=== PATIENT | female | born 1950 | race Caucasian/White ===

== ENCOUNTER 2016-06-13 18:26 | Inpatient (IN) | payer MEDICARE, OTHER ==
[~2016-06-13] VITALS: Ht 151.1 cm; Wt 59.0 kg
[2016-06-13] MEDS ORDERED: oxyCODONE/APAP 10/325 TABLET ONE (19:07)
[2016-06-13] MEDS ORDERED: DIGOXIN 0.5 MG/2 ML AMP IV STA (21:03)
[2016-06-13] MEDS ORDERED: DOCUSATE SOD 100 MG CAP PO PRN (21:05)
[2016-06-13] MEDS ORDERED: ONDANSETRON 4 MG VIAL IV PRN (21:05)
[2016-06-13] MEDS ORDERED: ACETAMINOPHEN 325 MG TAB PO PRN (21:05)
[2016-06-13] MEDS ORDERED: NEB-XOPENEX 0.63 MG/3 ML INH PRN (21:05)
[2016-06-13] MEDS ORDERED: DILTIAZEM 125 MG in DEXTROSE 125 ML IV ONE (21:05)
[2016-06-13] MEDS ORDERED: SALINE FLUSH 10 ML FLUSH PRN (21:05)
[2016-06-13] MEDS ORDERED: CARDIZEM 1 MG/ML DRIP 125 ML IV SCH (21:30)
[2016-06-13 22:57] VITALS: BP_SYST 152; BP_SYST 154; RESP 20; TEMP 97.8
[2016-06-13 22:58] VITALS: Ht 151.1 cm; Wt 59.0 kg
[2016-06-13] MEDS ORDERED: Flu Vaccine Quadrivalent 60 MCG/0.5 ML IM.VACC ONE (23:00)
[2016-06-13] MEDS: BUMETANIDE 2.5 MG/10 ML VIAL IV SCH (23:02)
[2016-06-13] MEDS: LORAZEPAM 0.5 MG TAB PO PRN (23:45)
[2016-06-13] MEDS: oxyCODONE/APAP 10/325 TABLET PO PRN (23:46)
[2016-06-14] VITALS (20 sets, daily range): BP systolic 80–173; RESP 16–20; TEMP 96.8–97.8
[2016-06-14] MEDS: CEFTRIAXONE 1 GM in SODIUM CHLORIDE 0.9% 50 ML IV SCH ×2 (00:15→09:04)
[2016-06-14] MEDS: SODIUM CHLORIDE 0.9% FLUSH BAG 500 ML IV SCH (04:30)
[2016-06-14] MEDS: oxyCODONE/APAP 10/325 TABLET PO PRN ×3 (05:28→19:34)
[2016-06-14] MEDS ORDERED: LEVOTHYROXINE 0.175 MG TAB PO SCH (07:00)
[2016-06-14] MEDS ORDERED: METOPROLOL TART 25 MG TAB PO SCH (09:00)
[2016-06-14] MEDS ORDERED: METOLAZONE 5 MG TAB PO SCH (09:00)
[2016-06-14] MEDS: BUMETANIDE 2.5 MG/10 ML VIAL IV SCH ×2 (09:03→21:21)
[2016-06-14] MEDS: APIXABAN 5 MG TAB PO SCH ×2 (09:04→21:22)
[2016-06-14] MEDS: KCL CR 10 MEQ TAB PO SCH (09:05)
[2016-06-14] MEDS: LORAZEPAM 0.5 MG TAB PO PRN (09:08)
[2016-06-14] MEDS: SALINE FLUSH 10 ML FLUSH SCH ×2 (09:14→19:38)
[2016-06-14] MEDS ORDERED: METOPROLOL XL 50 MG TAB PO SCH (10:50)
[2016-06-14] MEDS: SACCHA BOULARDII 250MG CAP PO SCH ×3 (11:01→21:22)
[2016-06-14] MEDS: DICYCLOMINE 20 MG TAB PO SCH ×3 (11:01→21:22)
[2016-06-14] MEDS: PREGABALIN 75 MG CAP PO SCH ×3 (11:01→21:22)
[2016-06-14] MEDS ORDERED: DIGOXIN 0.125 MG TAB PO SCH (12:00)
[2016-06-14] MEDS: clonazePAM 0.5 MG TAB PO PRN (22:38)
[2016-06-15] VITALS (45 sets, daily range): BP systolic 58–126; RESP 16; TEMP 96.9–98.1
[2016-06-15] MEDS ORDERED: SODIUM CHLORIDE 0.9% 250 ML IV ONE (00:30)
[2016-06-15] MEDS: SODIUM CHLORIDE 0.9% FLUSH BAG 500 ML IV SCH (05:21)
[2016-06-15] MEDS: DICYCLOMINE 20 MG TAB PO SCH ×4 (05:23→20:16)
[2016-06-15] MEDS ORDERED: METOPROLOL XL 25 MG TAB PO SCH (09:00)
[2016-06-15] MEDS ORDERED: BUMETANIDE 1 MG TAB PO SCH (09:00)
[2016-06-15] MEDS: KCL CR 10 MEQ TAB PO SCH (09:13)
[2016-06-15] MEDS: APIXABAN 5 MG TAB PO SCH ×2 (09:13→20:15)
[2016-06-15] MEDS: SACCHA BOULARDII 250MG CAP PO SCH ×3 (09:13→20:15)
[2016-06-15] MEDS: CEFTRIAXONE 1 GM in SODIUM CHLORIDE 0.9% 50 ML IV SCH (09:13)
[2016-06-15] MEDS: SALINE FLUSH 10 ML FLUSH SCH ×2 (09:13→20:15)
[2016-06-15] MEDS: PREGABALIN 75 MG CAP PO SCH ×3 (09:14→23:27)
[2016-06-15] MEDS: oxyCODONE/APAP 10/325 TABLET PO PRN ×2 (13:08→23:28)
[2016-06-15] MEDS: SODIUM CHLOR 0.9% W/KCL 20MEQ 1,000 ML IV SCH (20:15)
[2016-06-15] MEDS: LORAZEPAM 0.5 MG TAB PO PRN (23:28)
[2016-06-16] VITALS (17 sets, daily range): BP systolic 85–145; RESP 16; TEMP 97.6–98
[2016-06-16] MEDS: DICYCLOMINE 20 MG TAB PO SCH ×4 (05:10→19:25)
[2016-06-16] MEDS: SODIUM CHLOR 0.9% W/KCL 20MEQ 1,000 ML IV SCH (05:45)
[2016-06-16] MEDS: SODIUM CHLORIDE 0.9% FLUSH BAG 500 ML IV SCH (05:45)
[2016-06-16] MEDS: PREGABALIN 75 MG CAP PO SCH (07:57)
[2016-06-16] MEDS ORDERED: MISSING DOSE XX ONE (08:00)
[2016-06-16] MEDS: SALINE FLUSH 10 ML FLUSH SCH ×2 (08:04→19:42)
[2016-06-16] MEDS: SACCHA BOULARDII 250MG CAP PO SCH ×3 (08:04→19:40)
[2016-06-16] MEDS: KCL CR 10 MEQ TAB PO SCH (08:04)
[2016-06-16] MEDS: APIXABAN 5 MG TAB PO SCH ×2 (08:05→19:40)
[2016-06-16] MEDS: oxyCODONE/APAP 10/325 TABLET PO PRN ×2 (12:21→19:41)
[2016-06-16] MEDS ORDERED: SODIUM CHLOR 0.9% W/KCL 20MEQ 1,000 ML IV SCH (13:40)
[2016-06-16] MEDS: LORAZEPAM 0.5 MG TAB PO PRN (16:13)
[2016-06-16] MEDS ORDERED: Furosemide 20 MG/2 ML VIAL IV ONE (18:25)
[2016-06-16] MEDS: MIDODRINE 10 MG TAB PO SCH (19:40)
[2016-06-16] MEDS: clonazePAM 0.5 MG TAB PO PRN (21:46)
[2016-06-16] MEDS: PREGABALIN 75 MG CAP PO PRN (21:46)
[2016-06-17] VITALS (7 sets, daily range): BP systolic 93–133; RESP 14–18; TEMP 97.1–97.8
[2016-06-17] MEDS: oxyCODONE/APAP 10/325 TABLET PO PRN ×3 (04:30→18:34)
[2016-06-17] MEDS: DICYCLOMINE 20 MG TAB PO SCH ×4 (05:53→20:02)
[2016-06-17] MEDS: SODIUM CHLORIDE 0.9% FLUSH BAG 500 ML IV SCH (06:25)
[2016-06-17] MEDS: LORAZEPAM 0.5 MG TAB PO PRN ×3 (06:25→16:16)
[2016-06-17] MEDS: MIDODRINE 10 MG TAB PO SCH ×2 (06:25→16:11)
[2016-06-17] MEDS: SALINE FLUSH 10 ML FLUSH SCH ×2 (07:53→20:00)
[2016-06-17] MEDS: KCL CR 10 MEQ TAB PO SCH (08:01)
[2016-06-17] MEDS: APIXABAN 5 MG TAB PO SCH ×2 (08:01→20:02)
[2016-06-17] MEDS: SACCHA BOULARDII 250MG CAP PO SCH ×3 (08:02→20:02)
[2016-06-17] MEDS: Furosemide 40 MG TAB PO SCH (15:03)
[2016-06-17] MEDS: clonazePAM 0.5 MG TAB PO PRN (20:12)
[2016-06-17] MEDS ORDERED: MISSING DOSE XX ONE (21:30)
[2016-06-17] MEDS: PREGABALIN 75 MG CAP PO PRN (22:05)
[2016-06-18] MEDS: LORAZEPAM 0.5 MG TAB PO PRN ×2 (00:30→14:02)
[2016-06-18] MEDS: oxyCODONE/APAP 10/325 TABLET PO PRN ×4 (00:31→21:12)
[2016-06-18 02:55] VITALS: BP_SYST 92; RESP 16; TEMP 95.7
[2016-06-18] MEDS: DICYCLOMINE 20 MG TAB PO SCH ×4 (06:48→21:12)
[2016-06-18] MEDS: SODIUM CHLORIDE 0.9% FLUSH BAG 500 ML IV SCH (06:48)
[2016-06-18] MEDS: MIDODRINE 10 MG TAB PO SCH ×2 (06:49→15:51)
[2016-06-18 07:11] VITALS: BP_SYST 120; RESP 16; TEMP 96
[2016-06-18] MEDS: SACCHA BOULARDII 250MG CAP PO SCH ×3 (07:59→21:12)
[2016-06-18] MEDS: APIXABAN 5 MG TAB PO SCH ×2 (08:00→21:10)
[2016-06-18] MEDS: KCL CR 10 MEQ TAB PO SCH (08:00)
[2016-06-18] MEDS: SALINE FLUSH 10 ML FLUSH SCH ×2 (08:00→20:00)
[2016-06-18] MEDS: Furosemide 40 MG TAB PO SCH (08:00)
[2016-06-18 11:12] VITALS: BP_SYST 101; RESP 16; TEMP 96.3
[2016-06-18 16:25] VITALS: BP_SYST 110; RESP 16; TEMP 97.5
[2016-06-18 19:20] VITALS: BP_SYST 106; RESP 18; TEMP 97.9
[2016-06-18] MEDS: clonazePAM 0.5 MG TAB PO PRN (21:12)
[2016-06-18 23:06] VITALS: BP_SYST 104; RESP 18; TEMP 97.3
[2016-06-19] MEDS ORDERED: MISSING DOSE XX ONE ×2 (00:10→12:00)
[2016-06-19 03:08] VITALS: BP_SYST 122; RESP 20; TEMP 97.8
[2016-06-19] MEDS: oxyCODONE/APAP 10/325 TABLET PO PRN ×3 (03:19→15:22)
[2016-06-19] MEDS: LORAZEPAM 0.5 MG TAB PO PRN ×2 (03:24→12:59)
[2016-06-19] MEDS: SODIUM CHLORIDE 0.9% FLUSH BAG 500 ML IV SCH (06:24)
[2016-06-19] MEDS: PREGABALIN 75 MG CAP PO PRN (06:25)
[2016-06-19] MEDS: DICYCLOMINE 20 MG TAB PO SCH ×2 (06:25→12:59)
[2016-06-19] MEDS: MIDODRINE 10 MG TAB PO SCH (06:25)
[2016-06-19 07:24] VITALS: BP_SYST 110; RESP 18; TEMP 97.8
[2016-06-19] MEDS: SALINE FLUSH 10 ML FLUSH SCH (07:58)
[2016-06-19] MEDS: Furosemide 40 MG TAB PO SCH (08:01)
[2016-06-19] MEDS: KCL CR 10 MEQ TAB PO SCH (08:01)
[2016-06-19] MEDS: SACCHA BOULARDII 250MG CAP PO SCH (08:01)
[2016-06-19 11:40] VITALS: BP_SYST 92; RESP 18; TEMP 97.6
[2016-06-19] MEDS: APIXABAN 5 MG TAB PO SCH (12:59)
[2016-06-19 15:47] VITALS: BP_SYST 92; RESP 18; TEMP 97.6
== END 2016-06-19 17:37 | disposition home health service (06) | DRG 308 ==
LOC: ENRESERVTM → ENRESERVDT → ER 18:26 → ENPENDDIS 21:03 → EMR 21:03 → 4THE 22:39
PROVIDERS: ADMIT Internal Medicine; ATTEND Internal Medicine
DX: I48.91 Unspecified atrial fibrillation (principal); I50.43 Acute on chronic combined systolic (congestive) and diastolic (congestive) heart failure; N39.0 Urinary tract infection, site not specified; J44.1 Chronic obstructive pulmonary disease with (acute) exacerbation; E86.9 Volume depletion, unspecified; E05.90 Thyrotoxicosis, unspecified without thyrotoxic crisis or storm; F32.9 Major depressive disorder, single episode, unspecified; B96.20 Unspecified Escherichia coli [E. coli] as the cause of diseases classified elsewhere; Z82.49 Family history of ischemic heart disease and other diseases of the circulatory system; Z86.73 Personal history of transient ischemic attack (TIA), and cerebral infarction without residual deficits; Z98.84 Bariatric surgery status
CPT/HCPCS: 36415; 36569; 36600; 71010; 71020; 76937; 80048; 80053; 80061; 80162; 81001; 82180; 82550; 82553; 82607; 82803; 83735; 83880; 84425; 84439; 84443; 84484; 85025; 85610; 85730; 87077; 87088; 87186; 93005; 94799